=== PATIENT | female | born 1975 | race Caucasian/White ===

== ENCOUNTER → 2018-09-19 16:30 | Outpatient (CLI) | payer BC, SELFPAY ==
[2018-09-19 17:50] LABS: CRP < 2.90 mg/L (0.0-3.0)
[2018-09-21 20:07] LABS: Endomysial Antibody IgA Negative (Negative)
[2018-09-23 09:12] LABS: Immunoglobulin A 89 mg/dL (87-352); t-Transglutaminase IgA <2 U/mL (0-3)
== END ==
PROVIDERS: Referring Provider Internal Medicine Gastroenterology; Visit Provider Internal Medicine Gastroenterology
DX: K52.9 Noninfective gastroenteritis and colitis, unspecified (principal)
CPT/HCPCS: 36415; 82784; 83516; 86140; 86255

== ENCOUNTER → 2019-10-07 07:45 | Outpatient (CLI) | payer BC, SELFPAY ==
[2019-10-03 08:17] VITALS: BMI 18.8
--- NOTE | 2019-10-07 07:48 | CT_ITS ---
STUDY: CT BRAIN WITH AND WITHOUT CONTRAST REASON FOR EXAM: Female, 44 years old. POSSIBLE MS, EXTREMITY WEAKNESS, UNSTEADY GAIT, SCLERODERMA-ON IMMUNOSUPPRESSANTS RADIATION DOSAGE (If Supplied By Facility): CTDIvol = ( 44.99 ) mGy, DLP = ( 1474.11 ) mGycm TECHNIQUE: Transaxial CT imaging of the brain was performed pre and post contrast administration. The examination was performed with intravenous administration of [id number] 50ML. Individualized dose optimization techniques were used for this CT. COMPARISON: None. FINDINGS: Normal soft tissue structures. Normal calvarium. Normal size ventricles and extra-axial spaces for the patient''s age. Normal white matter tracts of the cerebral hemispheres. Normal basal ganglia and thalami. Normal brainstem. Normal cerebellum. There is no intracranial hemorrhage. There are no findings of an acute ischemic infarction. Normal visualized paranasal sinuses. CT/Brain/Head W/WO Contrast IMPRESSION: Normal unenhanced and enhanced CT scan of the brain. Electronically Signed: Alex Mendenhall, at 8:34 EDT , Service support ,
--- NOTE | 2019-10-07 07:48 | CT_ITS ---
STUDY: CT CERVICAL SPINE WITHOUT CONTRAST REASON FOR EXAM: Female, 44 years old. POSSIBLE MS, EXTREMITY WEAKNESS, UNSTEADY GAIT, SCLERODERMA-ON IMMUNOSUPPRESSANTS RADIATION DOSAGE (If Supplied By Facility): CTDIvol = ( 12.59 ) mGy, DLP = ( 225.50 ) mGycm TECHNIQUE: High resolution transaxial imaging was performed without contrast material. Sagittal and coronal images were reconstructed. Individualized dose optimization techniques were used for this CT. COMPARISON: None FINDINGS: Normal craniovertebral junction. Normal anterior atlantoaxial articulation. Normal odontoid process. There is straightening of the normal cervical lordosis. Normal vertebral bodies and posterior osseous elements. C2-3: Normal endplates. Normal disc height and morphology. Normal central canal and intervertebral neuroforamina. C3-4: Normal endplates. Normal disc height and morphology. Normal central canal and intervertebral neuroforamina. C4-5: Normal endplates. Normal disc height and morphology. Normal central canal and intervertebral neuroforamina. C5-6: Normal endplates. Normal disc height and morphology. Normal central canal and intervertebral neuroforamina. C6-7: Normal endplates. Normal disc height and morphology. Normal central canal and intervertebral neuroforamina. C7-T1: Normal endplates. Normal disc height and morphology. Normal central canal and intervertebral neuroforamina. Normal visualized soft tissue structures. CT/Spine Cervical without Contras IMPRESSION: Normal unenhanced CT examination of the cervical spine. Electronically Signed: Alex Mendenhall, at 8:34 EDT , Service support ,
== END ==
PROVIDERS: Referring Provider Psychiatry & Neurology Neurology; Visit Provider Psychiatry & Neurology Neurology
DX: G35 Multiple sclerosis (principal)
CPT/HCPCS: 70470; 72125; Q9967

== ENCOUNTER → 2019-10-15 09:29 | Outpatient (CLI) | payer BC, SELFPAY ==
[2019-10-03 08:17] VITALS: BMI 18.8
--- NOTE | 2019-10-15 09:45 | MRI_ITS ---
STUDY: MRI BRAIN WITH AND WITHOUT CONTRAST REASON FOR EXAM: Female, 44 years old. MS TECHNIQUE: Standardized multiplanar fat and water weighted pulse sequences were obtained. IV Yes YES was administered for the contrast portion of the examination. COMPARISON: CT 10/07/2019 FINDINGS: Normal size of the ventricles and extra-axial spaces for the patient''s age. Normal white matter tracts of the supratentorial brain. There is no evidence for recent intracranial ischemia or other cause of cytotoxic edema on diffusion weighted imaging (DWI). There are no demyelinating plagues of the supratentorial brain, brainstem or cerebellum. There are no findings suspicious for multiple sclerosis (MS). Normal bilateral basal ganglia. Normal thalami. There is no extra-axial fluid accumulation. Normal flow voids within the major intracranial circulation suggesting patency by spin echo criteria. Normal venous enhancement. There is no enhancing intra-axial or extra-axial abnormality. Normal sella turcica, pituitary gland, infundibular stalk, optic chiasm and hypothalamus. Normal tectal plate and pineal gland. Normal midbrain, evy and medulla. Normal cerebellum. Normal basal cisterns. Normal bilateral temporal bones. Normal bilateral internal auditory canals. No demonstrated orbital abnormality, within the constraints of a routine brain study. Normal visualized paranasal sinuses. Normal calvarium and skull base. Normal visualized soft tissue structures. Normal visualized upper cervical spine. MRI/Brain W/WO Contrast IMPRESSION: Normal unenhanced and enhanced MRI of the brain. No MR evidence of the demyelinating disease (multiple sclerosis) (. Electronically Signed: Sanjay Rodriguez MD at 11:31 EDT Tel , Service support ,
--- NOTE | 2019-10-15 09:45 | MRI_ITS ---
STUDY: MRI CERVICAL SPINE WITH AND WITHOUT CONTRAST REASON FOR EXAM: Female, 44 years old. Joint pain, achiness, stiffness, difficulty walking. Concern for multiple sclerosis TECHNIQUE: Standardized fat and water weighted pulse sequences were obtained in the sagittal and axial following administration of 9ml Dotarem IV. COMPARISON: None FINDINGS: Normal foramen magnum and brainstem-cervical cord junction. Normal craniovertebral junction. Normal anterior atlantoaxial articulation. Normal odontoid process. There is straightening of the normal cervical lordosis. Normal vertebral bodies and posterior osseous elements. C2-3: Normal endplates. Normal disc height, signal and morphology. Normal central canal and intervertebral neural foramina. C3-4: Small central disc osteophyte complex produces mild spinal stenosis but no neural foraminal stenosis. C4-5: Normal endplates. Normal disc height, signal and morphology. Normal central canal and intervertebral neural foramina. C5-6: Moderate size right paracentral disc osteophyte complex produces moderate spinal stenosis with abutment of the right hemicord. No neural foraminal stenosis. C6-7: Normal endplates. Normal disc height, signal and morphology. Normal central canal and intervertebral neural foramina. C7-T1: Normal endplates. Normal disc height, signal and morphology. Normal central canal and intervertebral neural foramina. Normal cervical cord. There is no demonstrated cervical cord demyelinating process. Normal visualized soft tissue structures. MRI/Spine Cervical W/WO Contrast IMPRESSION: Mild degenerative disc disease with straightening of the normal lordotic curvature. No MR evidence of demyelinating disease (multiple sclerosis). No abnormal contrast enhancement. Electronically Signed: Sanjay Rodriguez MD at 11:25 EDT Tel , Service support ,
[2019-10-15 10:48] LABS: Vitamin B12 > 2000 pg/mL (211-911)
[2019-10-15 12:16] LABS: Folates, (Folic Acid) > 100.00 ng/mL (3.1-55.4); Potassium 3.9 mmol/L (3.5-5.1)
== END ==
PROVIDERS: Referring Provider Psychiatry & Neurology Neurology; Visit Provider Psychiatry & Neurology Neurology
DX: G35 Multiple sclerosis (principal); D64.9 Anemia, unspecified; E87.6 Hypokalemia
CPT/HCPCS: 36415; 70553; 72156; 82533; 82607; 82746; 84132; A9575

== ENCOUNTER → 2019-11-05 17:00 | Outpatient (CLI) | payer BC, SELFPAY ==
[2019-10-31 08:44] VITALS: BMI 18.8
--- NOTE | 2019-11-05 17:01 | MRI_ITS ---
STUDY: MRI THORACIC SPINE WITH AND WITHOUT CONTRAST REASON FOR EXAM: Female, 44 years old. dorsalgia, joint pain,difficulty walking TECHNIQUE: IV DOTAREM 9ML was administered for the contrast portion of the examination. COMPARISON: None. FINDINGS: Normal kyphosis of the thoracic spine. There is no substantial scoliosis. T1-2, T2-3, T3-4, T4-5, T5-6, T6-7, T10-11: Normal endplates. Normal disc hydration, heights and morphology of the corresponding intervertebral discs. Normal central canal and intervertebral neural foramina at the corresponding levels. T7-8: Central disc protrusion with mild central canal stenosis and distortion of the ventral cord. T8-9: Central disc protrusion with minimal central canal stenosis. T9-10: Central disc protrusion with mild central canal stenosis. T11-12: Small right paracentral disc protrusion without compressive sequelae. Normal visualized thoracic cord. Normal conus medullaris that terminates at the . Multiple hepatic cysts. There is no enhancing abnormality. MRI/Spine Thoracic W/WO Contrast IMPRESSION: Multilevel degenerative disease as described. Disc protrusion at T7-8 with mild central canal stenosis and some distortion of the ventral cord. However, no evidence of cord compression or intrinsic cord signal abnormalities. No evidence of exiting nerve root impingement or abnormal postcontrast enhancement. Electronically Signed: Pk Escoto MD at 21:38 EDT Tel , Service support ,
== END ==
PROVIDERS: Referring Provider Psychiatry & Neurology Neurology; Visit Provider Psychiatry & Neurology Neurology
DX: M54.9 Dorsalgia, unspecified (principal)
CPT/HCPCS: 72157; A9575

== ENCOUNTER → 2020-11-23 08:50 | Outpatient (CLI) | payer BC, SELFPAY ==
[2019-10-31 08:44] VITALS: BMI 18.8
--- NOTE | 2020-11-23 08:55 | RAD_ITS ---
STUDY: SMALL BOWEL FOLLOW-THROUGH STUDY REASON FOR EXAM: Female, 45 years old. Nausea/vomiting/diarrhea RADIATION DOSAGE (If Supplied By Facility): CTDIvol = ( ) mGy, DLP = ( ) mGycm. Individualized dose optimization techniques were used for this CT.? FLUOROSCOPY TIME (if supplied): ( 36 )seconds, one C-arm fluoroscopy film, 5 overhead AP images TECHNIQUE: Ingested barium tracked through the small bowel with serial films COMPARISON: None. FINDINGS: Cardiac Specialist film demonstrates retained stool throughout the colon. There is no free air, suspicious mass or calcification noted. Bony structures are unremarkable. Normal appearing stomach and small bowel. There is no evidence of mucosal ulceration or abnormal thickening. There is no abnormal separation of bowel loops to suspect acute inflammation. Transit time to the large intestine is slightly less than 60 minutes which is within normal range. Spot films of the terminal ileum did not show evidence of mucosal abnormality. RAD/Small Bowel Series Only IMPRESSION: Normal study Electronically Signed: Corey Ojeda MD at 11:36 EDT , Service support ,
== END ==
PROVIDERS: Referring Provider Internal Medicine Gastroenterology; Visit Provider Internal Medicine Gastroenterology
DX: R19.7 Diarrhea, unspecified (principal); M34.9 Systemic sclerosis, unspecified
CPT/HCPCS: 74250

== ENCOUNTER → 2023-01-20 | Outpatient (CLI) | payer BC, SELFPAY ==
--- NOTE | 2023-01-20 18:45 | CT_ITS ---
EXAM: CT ABDOMEN AND PELVIS WITH INTRAVENOUS CONTRAST CLINICAL INDICATION: Abdominal pain. TECHNIQUE: Helically acquired images were obtained of the abdomen and pelvis with intravenous contrast. This CT exam was performed using one or more of the following dose reduction techniques: automated exposure control, adjustment of the mA and/or kV according to patient size, and/or use of iterative reconstruction technique. CONTRAST: Oral and amp; IV BREEZA NEUTRAL and amp; 100mL [id number] RADIATION DOSE: CTDIvol = 7.86 mGy, DLP = 260.68 mGy-cm COMPARISON: No relevant prior studies available. FINDINGS: LOWER THORAX: Unremarkable. Lung bases are clear. No cardiomegaly. No significant pericardial effusion. ABDOMEN: LIVER: Innumerable nonenhancing subcentimeter cysts throughout the liver, more in the right hepatic lobe. GALLBLADDER AND BILE DUCTS: Unremarkable. No calcified gallstones. No gallbladder distention or wall edema. No intra- or extrahepatic biliary ductal dilation. PANCREAS: Unremarkable. No focal cystic or solid mass. SPLEEN: Unremarkable. Normal size without focal cystic or solid mass. ADRENALS: Unremarkable. No nodules. KIDNEYS AND URETERS: Unremarkable. Normal renal size and position. No hydronephrosis. STOMACH AND BOWEL: Unremarkable. No stomach or bowel distention. No focal inflammatory change. PELVIS: APPENDIX: Normal. BLADDER: Unremarkable. REPRODUCTIVE: Unremarkable as visualized. No mass. ABDOMEN and PELVIS: INTRAPERITONEAL SPACE: Unremarkable. No ascites or other fluid collection. No free air. BONES/JOINTS: Unremarkable. No suspicious lytic or blastic abnormality. SOFT TISSUES: Bilateral breast implants are intact. No discrete abdominal or pelvic wall hernia. VASCULATURE: Unremarkable. Abdominal aorta is non-dilated. LYMPH NODES: Unremarkable. No enlarged lymph nodes. CT/Abdomen/Pelvis WITH Contrast IMPRESSION: 1. No acute findings in the abdomen or pelvis. 2. Innumerable nonenhancing subcentimeter cysts in the liver, more in the right hepatic lobe. They are benign cysts. Electronically Signed: Kiko Olguin MD at 13:20 EDT ,
== END | disposition home or self-care (01) ==
LOC: CT 18:49
PROVIDERS: PCP Family Medicine; Referring Provider Internal Medicine Gastroenterology; Visit Provider Internal Medicine Gastroenterology
DX: R10.9 Unspecified abdominal pain (principal)
CPT/HCPCS: 74177; Q9967